=== PATIENT | female | born 1980 | race African-American/Black ===

== ENCOUNTER 2016-12-22 17:41 | Emergency (ER) | payer OTHER ==
[2016-12-22 17:46] VITALS: BP 116/79; PULSE 90; TEMP 98.3; BMI 26.6
[2016-12-22] MEDS ORDERED: IBUPROFEN 400 MG TABLET (FP) PO ONE ×2 (18:20→18:45)
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
== END 2016-12-22 19:54 | disposition home or self-care (01) ==
LOC: JERFT 17:41
DX: S50.02XA Contusion of left elbow, initial encounter (principal); Y00.XXXA Assault by blunt object, initial encounter; Y93.89 Activity, other specified; Y92.198 Other place in other specified residential institution as the place of occurrence of the external cause; Y99.0 Civilian activity done for income or pay
CPT/HCPCS: 73070-TC-LT; 84703; 99281-25

== ENCOUNTER 2016-12-29 17:51 | Emergency (ER) | payer SELFPAY ==
[2016-12-29 17:55] VITALS: BMI 25.7
[2016-12-29] MEDS ORDERED: MAG HYDROX/AL HYDROX/SIMETH 30 ML UNIT-DOSE CUP PO ONE (18:49)
[2016-12-29] MEDS ORDERED: RANITIDINE HCL 150 MG TABLET (FP) PO ONE (18:49)
[2016-12-29] MEDS ORDERED: ONDANSETRON 4 MG TABLET PO ONE (18:57)
--- NOTE | 2016-12-29 19:07 | PDOC ---
History of Present Illness <Megan Sorto - Last Filed: 12/29/16 19:48> - History of Present Illness Initial Comments: 12/29/16 18:55 36 yo F with h/o GERD who presents with abdominal pain. Patient reports worsening, burning, non-radiating, and unrelenting, midepigastric pain of 2 weeks duration. Worse with supine positioning and night time. Also complains of decreased appetite, nausea without vomiting, and constipation. Last BM yesterday evening. Pain not aggravated with food. Pain aggravated with decreased PO intake. Denies fevers/chills, back pain,SOB, diarrhea, blood in stool, urinary complaint, flank pain. Pain not alleviated with OTC Motrin x 2- 3 /day for past 3 weeks. States that she has had prior endoscopy 1 year ago at OSH with no diagnosis of ulcers, but was treated with 3-4 week course of suspected PPI with resolution of similar symptoms. Denies h/o GI surgeries. Does not follow with GI. <Martínez Holland - Last Filed: 12/29/16 20:50> - General Chief Complaint: Pain Stated Complaint: STOMACH PAIN Time Seen by Provider: 12/29/16 18:26 Past History <Megan Sorto - Last Filed: 12/29/16 19:48> - Past Medical History Other medical history: denies - Suicide/Smoking/Psychosocial Hx Smoking History: Never smoked Information on smoking cessation initiated: No Hx Alcohol Use: No Drug/Substance Use Hx: No Substance Use Type: Alcohol <Martínez Holland - Last Filed: 12/29/16 20:50> - Past Medical History Allergies/Adverse Reactions: Allergies Allergy/AdvReac Type Severity Reaction Status Date / Time No Known Allergies Allergy Verified 12/29/16 17:54 Home Medications: Ambulatory Orders Pantoprazole Sodium [Protonix -] 20 mg PO DAILY #30 tablet.ec 12/29/16 Review of Systems - Review of Systems Comments:: 12/29/16 19:09 GENERAL/CONSTITUTIONAL: No fever or chills. No weakness. HEAD, EYES, EARS, NOSE AND THROAT: No change in vision. No ear pain or discharge. No sore throat.- CARDIOVASCULAR:+ epigastirc chest pain. No shortness of breath RESPIRATORY: No cough, wheezing, or hemoptysis. GASTROINTESTINAL: +nausea and constipation. No vomiting, diarrhea . GENITOURINARY: No dysuria, frequency, or change in urination. MUSCULOSKELETAL: No joint or muscle swelling or pain. No neck or back pain. SKIN: No rash NEUROLOGIC: No headache, vertigo, loss of consciousness, or change in strength/ sensation. ENDOCRINE: No increased thirst. No abnormal weight change HEMATOLOGIC/LYMPHATIC: No anemia, easy bleeding, or history of blood clots. ALLERGIC/IMMUNOLOGIC: No hives or skin allergy. <Martínez Holland - Last Filed: 12/29/16 20:50> *Physical Exam - Vital Signs Last Vital Signs Temp Pulse Resp BP Pulse Ox 98.2 F 65 18 116/71 100 12/29/16 17:53 12/29/16 17:53 12/29/16 17:53 12/29/16 17:53 12/29/16 17:53 <Megan Sorto - Last Filed: 12/29/16 19:48> - Vital Signs Last Vital Signs Temp Pulse Resp BP Pulse Ox 98.2 F 65 18 116/71 100 12/29/16 17:53 12/29/16 17:53 12/29/16 17:53 12/29/16 17:53 12/29/16 17:53 - Physical Exam Comments: 12/29/16 19:10 GENERAL: Awake, alert, and fully oriented, in no acute distress HEAD: No signs of trauma, normocephalic, atraumatic EYES: PERRLA, EOMI, sclera anicteric, conjunctiva clear ENT: Auricles normal inspection, hearing grossly normal, nares patent, oropharynx clear without exudates. Moist mucosa NECK: Normal ROM, supple, no lymphadenopathy, JVD, or masses LUNGS: No distress, speaks full sentences, clear to auscultation bilaterally HEART: Regular rate and rhythm, normal S1 and S2, no murmurs, rubs or gallops, peripheral pulses normal and equal bilaterally. ABDOMEN: Soft, midepigastric ttp and RLQ ttp, normoactive bowel sounds. No guarding, no rebound. No masses EXTREMITIES : Normal inspection, Normal range of motion, no edema. No clubbing or cyanosis. SKIN: Warm, Dry, normal turgor, no rashes or lesions noted. <Martínez Holland - Last Filed: 12/29/16 20:50> ED Treatment Course - LABORATORY CBC & Chemistry Diagram: 12/29/16 19:25 12/29/16 19:25 - Medications Given in the ED: ED Medications Discontinued Medications Generic Name Dose Route Start Last Admin Trade Name Melanie PRN Reason Stop Dose Admin Al Hydroxide/Mg Hydroxide 30 ml 12/29/16 18:49 12/29/16 19:20 Mylanta Oral Suspension - PO 12/29/16 18:50 30 ml ONCE ONE Administration Ranitidine HCl 300 mg 12/29/16 18:49 12/29/16 19:20 Zantac - PO 12/29/16 18:50 300 mg ONCE ONE Administration <Megan Sorto - Last Filed: 12/29/16 19:48> - LABORATORY CBC & Chemistry Diagram: 12/29/16 19:25 12/29/16 19:25 <Martínez Holland - Last Filed: 12/29/16 20:50> Medical Decision Making - Medical Decision Making 12/29/16 19:17 36 yo F with h/o GERD who presents with burning midepigastric abdominal pain of 2 weeks duration. No postprandial pain, but endorses nausea and decreased appetite. Recent daily OTC NSAID use for elbow sprain. Physical exam noted for midepigastric and RLQ ttp. Hemodynamically stable and AF. Endoscopy one year ago at OSH with no pathology noted. DDx: Dyspepsia, PUD, colitis, appendicitis ED Course: CBC, CMP, UA, Urine Preg, 12/29/16 19:19 Maloox, Ranitidine, Zofran. 12/29/16 20:13 CBC~WBC 7.6 12/29/16 20:37 AST/ALT: 11/22 Lipase: 126 Alk Phosph: 63 12/29/16 20:50 Discussed with patient the need to follow up with GI for persistent symptoms. Pt. also given Pantaprazole 20 mg PO QD to home pharmacy. <Martínez Holland - Last Filed: 12/29/16 20:50> *DC/Admit/Observation/Transfer <Megan Sorto - Last Filed: 12/29/16 19:48> - Discharge Dispostion Admit: No - Attestations Physician Attestion: 12/29/16 20:49 I attest to the information provided in this handout. <Martínez Holland - Last Filed: 12/29/16 20:50> Diagnosis at time of Disposition: Dyspepsia - Discharge Dispostion Disposition: HOME Condition at time of disposition: Improved - Prescriptions Prescriptions: Pantoprazole Sodium [Protonix -] 20 mg PO DAILY #30 tablet.ec - Referrals Referrals: STAFF,NOT ON [Primary Care Provider] - Laith Blair MD [Staff Physician] - - Patient Instructions Printed Discharge Instructions: DI for Gastroesophageal Reflux Disease (GERD) Additional Instructions: Please return to the ED if you experience any worsening abdominal pain, fevers/ chills, or worsening symptoms. Please take Pantaprazole 20 mg oral daily. Follow up with supervisor paper testing. Avoid foods that trigger symptoms and minimize caffeine intake.
[2016-12-29] MEDS ORDERED: MAG HYDROX/AL HYDROX/SIMETH 30 ML UNIT-DOSE CUP ONE (19:17)
[2016-12-29] MEDS ORDERED: RANITIDINE HCL 150 MG TABLET (FP) ONE (19:17)
[2016-12-29 19:50] LABS: BASOPHIL 0.7 % (0-2.0); EOSINOPHIL 2.4 % (0-4.5); MCH 31.2 pg (25.7-33.7); MCHC 34.1 g/dl (32.0-36.0); MEAN CELL VOLUME 91.4 fl (80-96); MEAN PLT VOLUME 7.4 fl (7.5-11.1); NEUTROPHILS 50.6 % (42.8-82.8); PLATELET COUNT 281 K/MM3 (134-434); RDW 12.9 % (11.6-15.6); WHITE BLOOD COUNT 7.6 K/mm3 (4.0-10.0)
[2016-12-29] MEDS ORDERED: ONDANSETRON 8 MG TABLET (FP) PO ONE (19:53)
--- NOTE | 2016-12-29 19:55 | PDOC ---
Attending Attestation - Resident Resident Name: Martínez Holland - ED Attending Attestation I have performed the following: I have examined & evaluated the patient, The case was reviewed & discussed with the resident, I agree w/resident's findings & plan, Exceptions are as noted - HPI HPI: 12/29/16 19:50 36-year-old female presents because of epigastric discomfort that worsens when she lays supine at night time. She feels like she has a acid taste in her mouth. She has been using NSAIDs for arm pain recently. Past medical history significant for GI complaints in the past and she had an endoscopy done last year and it was unremarkable. She was given a "small red pill" that she took daily for 1 month and her symptoms resolved - Physicial Exam PE: 12/29/16 19:56 36 yo female in no acute distress has c/o epigstric pain for past few weeks. Denies current fever or vomiting HEENT wnl lings cta b/l cvr [id number] abd soft,no focal abd tenderness,no rebound,no guarding and normal BS extremities no deformity,normal motor strength neuro axox3 - Medical Decision Making 12/29/16 20:57 labs reviewed unremarkabe imp gerd plan PPI , follow up with her GI
[2016-12-29 20:25] LABS: ALK PHOS 63 U/L (45-117); ANION GAP 7 (8-16); BILIRUBIN,TOTAL 0.5 mg/dL (0.2-1.0); CALCIUM 8.8 mg/dL (8.5-10.1); CO2 28 mmol/L (21-32); CREATININE 0.6 mg/dL (0.55-1.02); GLUCOSE,RANDOM 90 mg/dL (74-106); SGOT/AST 9 U/L (15-37); SGPT/ALT 17 U/L (12-78); TOT PROT 7.9 g/dl (6.4-8.2)
[2016-12-29 21:16] VITALS: BP 100/55; PULSE 71; TEMP 98.8
== END 2016-12-29 21:18 | disposition home or self-care (01) ==
LOC: JER 17:51
DX: R10.13 Epigastric pain (principal); K21.9 Gastro-esophageal reflux disease without esophagitis
CPT/HCPCS: 36415; 80053; 83690; 85025; 99283-25

== ENCOUNTER 2017-09-30 22:01 | Emergency (ER) | payer OTHER ==
[2017-09-30 22:04] VITALS: BP 122/57; PULSE 84; TEMP 98.1; BMI 28.3
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
== END 2017-09-30 22:48 | disposition home or self-care (01) ==
LOC: JERFT 22:01
DX: S00.83XA Contusion of other part of head, initial encounter (principal); Y04.2XXA Assault by strike against or bumped into by another person, initial encounter; Y93.89 Activity, other specified; Y92.198 Other place in other specified residential institution as the place of occurrence of the external cause; Y07.9 Unspecified perpetrator of maltreatment and neglect
CPT/HCPCS: 70150-TC-FY; 99281-25

== ENCOUNTER 2018-02-11 20:54 | Emergency (ER) | payer OTHER ==
--- NOTE | 2018-02-11 21:14 | PDOC ---
Rapid Medical Evaluation Chief Complaint: Pain Time Seen by Provider: 02/11/18 21:13 Medical Evaluation: Allergies Allergy/AdvReac Type Severity Reaction Status Date / Time No Known Allergies Allergy Verified 02/11/18 21:13 02/11/18 21:13 I have performed a brief in-person evaluation of this patient. The patient presents with a chief complaint of: Upper abd pain x n/v x 2 days. Taking motrin w/ no relief. Similar sxs in past and dx w/ ?gastritis, received w / protonix in past, neg EGD remotely Pertinent physical exam findings:Stable w/ +epigastric ttp I have ordered the following:labs The patient will proceed to the ED for further evaluation. 02/11/18 21:15 Discharge Disposition - Diagnosis Abdominal pain Qualifiers: Abdominal location: upper abdomen, unspecified Qualified Code(s): R10.10 - Upper abdominal pain, unspecified - Referrals - Patient Instructions - Post Discharge Activity
[2018-02-11 21:16] VITALS: BP 114/71; PULSE 77; TEMP 98.7; BMI 27.4
[2018-02-11 21:45] LABS: BASO % 0.7 % (0-2.0); EOS % 3.7 % (0-4.5); HEMATOCRIT 37.2 % (32.4-45.2); HEMOGLOBIN 13.1 GM/dL (10.7-15.3); LYMPH % 35.8 % (8-40); MCH 32.4 pg (25.7-33.7); MCHC 35.3 g/dl (32.0-36.0); MEAN CELL VOLUME 91.8 fl (80-96); MEAN PLT VOLUME 7.4 fl (7.5-11.1); NEUT % 50.8 % (42.8-82.8); PLATELET COUNT 329 K/MM3 (134-434); RBC 4.05 M/mm3 (3.60-5.2); WHITE BLOOD COUNT 6.7 K/mm3 (4.0-10.0)
[2018-02-11] MEDS ORDERED: FAMOTIDINE 20 MG/50 ML IVPB 20 MG/50 ML MG IVPB ONE ×2 (21:50→21:53)
[2018-02-11] MEDS ORDERED: MAG HYDROX/AL HYDROX/SIMETH 30 ML UNIT-DOSE CUP PO ONE (21:50)
--- NOTE | 2018-02-11 21:50 | PDOC ---
History of Present Illness - General Chief Complaint: Pain Stated Complaint: ABD PAIN Time Seen by Provider: 02/11/18 21:13 History Source: Patient Exam Limitations: No Limitations - History of Present Illness Travel History: No Initial Comments: 02/11/18 21:55 Best Contact: PCP: None Pmhx:Denies Pshx: Denies Allergies: NKDA FH:Denies Social Hx: Cigarettes/ denies Alcohol/ social Drugs/ vaping LMP:02/05/2018 37-year-old female presents to the emergency department complaining of epigastric abdominal discomfort since last evening after eating dinner pain was initially 8/10 dull nonradiating intermittent discomfort. Patient took 1 dose of protonix 20 mg by mouth last evening with relief. Patient states pain started 3 hours ago and is described as 4/10 epigastric nonradiating intermittent discomfort. Patient denies nausea/vomiting, fever/chills, headache , dizziness, lightheadedness, neck/back pains, chest pain, shortness of breath, flank pains, urinary symptoms: Frequency/urgency/hesitancy, hematuria. Patient states symptoms feels exactly the same as her previous GERD. Last EGD: 6 months/negative Past History - Past Medical History Allergies/Adverse Reactions: Allergies Allergy/AdvReac Type Severity Reaction Status Date / Time No Known Allergies Allergy Verified 02/11/18 21:13 Home Medications: Ambulatory Orders Ibuprofen 800 mg PO TID PRN #12 tablet 09/30/17 COPD: No GI Disorders: Yes (GERD) - Suicide/Smoking/Psychosocial Hx Smoking History: Never smoked Number of Cigarettes Smoked Daily: 1 'Breaking Loose' booklet given: 09/30/17 Hx Alcohol Use: No Drug/Substance Use Hx: No Substance Use Type: Alcohol Review of Systems - Review of Systems Able to Perform ROS?: Yes Comments:: 02/11/18 21:49 CONSTITUTIONAL: Absent: fever, chills, diaphoresis, generalized weakness, malaise, loss of appetite HEENT: Absent: rhinorrhea, nasal congestion, throat pain, throat swelling, difficulty swallowing, mouth swelling, ear pain, eye pain, visual Changes CARDIOVASCULAR: Absent: chest pain, loss of consciousness, palpitations, irregular heart rate, peripheral edema RESPIRATORY: Absent: cough, shortness of breath, dyspnea with exertion, orthopnea, wheezing, stridor, hemoptysis GASTROINTESTINAL: +epigastric pain x1d Absent:abdominal distension, nausea, vomiting, diarrhea, constipation, melena, hematochezia GENITOURINARY: Absent: dysuria, frequency, urgency, hesitancy, hematuria, flank pain, genital pain MUSCULOSKELETAL: Absent: myalgia, arthralgia, joint swelling SKIN: Absent: rash, itching, pallor HEMATOLOGIC/IMMUNOLOGIC: Absent: easy bleeding, easy bruising, lymphadenopathy, frequent infections ENDOCRINE: Absent: unexplained weight gain, unexplained weight loss, heat intolerance, cold intolerance NEUROLOGIC: Absent: headache, focal weakness or paresthesias, dizziness, unsteady gait, seizure, mental status changes, bladder or bowel incontinence Is the patient limited Bruneian proficient: No *Physical Exam - Vital Signs Last Vital Signs Temp Pulse Resp BP Pulse Ox 98.7 F 77 18 114/71 100 02/11/18 21:13 02/11/18 21:13 02/11/18 21:13 02/11/18 21:13 02/11/18 21:13 - Physical Exam Comments: 02/11/18 21:49 GENERAL: Well developed, well nourished. Awake and alert. No acute distress. HEENT: Normocephalic, atraumatic. PERRLA, EOMI. No conjunctival pallor. Sclera are non- icteric. Moist mucous membranes. Oropharynx is clear. NECK: Supple. Full ROM. No JVD. Carotid pulses 2+ and symmetric, without bruits. No thyromegaly. No lymphadenopathy. CARDIOVASCULAR: Regular rate and rhythm. No murmurs, rubs, or gallops. Distal pulses are 2+ and symmetric. PULMONARY: No evidence of respiratory distress. Lungs clear to auscultation bilaterally. No wheezing, rales or rhonchi. ABDOMINAL: +epigastric pain on deep palp Soft. Non-distended. No rebound or guarding. No organomegaly. Normoactive bowel sounds. MUSCULOSKELETAL Normal range of motion at all joints. No bony deformities or tenderness. No CVA tenderness. EXTREMITIES: No cyanosis. No clubbing. No edema. No calf tenderness. SKIN: Warm and dry. Normal capillary refill. No rashes. No jaundice. NEUROLOGICAL: Alert, awake, appropriate. Cranial nerves 2-12 intact. No deficits to light touch and temperature in face, upper extremities and lower extremities. No motor deficits in the in face, upper extremities and lower extremities. Normoreflexic in the upper and lower extremities. Normal speech. Toes are down- going bilaterally. Gait is normal without ataxia. Moderate Sedation - Procedure Monitoring Vital Signs: Procedure Monitoring Vital Signs Temperature 98.7 F 02/11/18 21:13 Pulse Rate 77 02/11/18 21:13 Respiratory Rate 18 02/11/18 21:13 Blood Pressure 114/71 02/11/18 21:13 O2 Sat by Pulse Oximetry (%) 100 02/11/18 21:13 ED Treatment Course - LABORATORY CBC & Chemistry Diagram: 02/11/18 21:25 02/11/18 21:25 Progress Note - Progress Note Progress Note: 2226hrs:Pt is pain free and wishes to be d/c. 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 Avoid acidic food Return to the ER for severe/persistent/worsening symptoms - Post Discharge Activity
[2018-02-11] MEDS ORDERED: MAG HYDROX/AL HYDROX/SIMETH 30 ML UNIT-DOSE CUP ONE (21:53)
[2018-02-11 22:12] LABS: ALBUMIN 3.7 g/dl (3.4-5.0); ALK PHOS 82 U/L (45-117); ANION GAP 7 MMOL/L (8-16); BILIRUBIN,TOTAL 0.4 mg/dL (0.2-1); BLOOD UREA NITROGEN 10 mg/dL (7-18); CALCIUM 8.7 mg/dL (8.5-10.1); CHLORIDE 102 mmol/L (98-107); CO2 28 mmol/L (21-32); CREATININE 0.7 mg/dL (0.55-1.3); GLUCOSE,RANDOM 90 mg/dL (74-106); LIPASE 131 U/L (73-393); POTASSIUM 3.5 mmol/L (3.5-5.1); SGOT/AST 10 U/L (15-37); SGPT/ALT 21 U/L (13-61); SODIUM 138 mmol/L (136-145); TOT PROT 7.7 g/dl (6.4-8.2)
[2018-02-11 23:14] LABS: URINE APPEARANCE SLCLOUDY; URINE BILIRUBIN NEGATIVE (<2.0 mg/dL); URINE COLOR YELLOW; URINE GLUCOSE (UA) NEGATIVE (NEGATIVE); URINE KETONE NEGATIVE (NEGATIVE); URINE LEUK ESTERASE NEGATIVE (NEGATIVE); URINE NITRITE NEGATIVE (NEGATIVE); URINE PROTEIN NEGATIVE (NEGATIVE); URINE UROBILINOGEN 4.0 E.U/dl mg/dL (0.2-1.0)
[2018-02-11 23:27] LABS: EPI CELLS FEW /HPF (FEW); URINE MUCUS MANY
== END 2018-02-11 23:01 | disposition home or self-care (01) ==
LOC: JER 20:54
PROC: 3E033GC Introduction of Other Therapeutic Substance into Peripheral Vein, Percutaneous Approach (ICD-10-PCS; principal; 2018-02-11)
DX: R10.13 Epigastric pain (principal)
CPT/HCPCS: 36415; 80053; 81003; 81015; 83690; 84703; 85025; 99282-25